=== PATIENT | female | born 1980 | race Caucasian/White ===

== ENCOUNTER 2022-10-19 16:37 | Inpatient (IN) | payer BC, MEDICAID, SELFPAY ==
[2022-10-19] MEDS ORDERED: Promethazine HCl 25 MG/ML VIAL IM PRN (20:31)
[2022-10-19] MEDS ORDERED: Ipratropium/Albuterol 3 ML NEB NEB PRN (20:31)
[2022-10-19] MEDS ORDERED: Dextrose 50% Abboject 50 ML SYRINGE SLOW IVP PRN (20:31)
[2022-10-19] MEDS ORDERED: Dextrose 5% in Water 1,000 ML IV PRN (20:31)
[2022-10-19] MEDS ORDERED: Acetaminophen 325 MG TAB PO PRN (20:31)
[2022-10-19] MEDS ORDERED: hydrALAZINE 20 MG/ML VIAL SLOW IVP PRN (20:31)
[2022-10-19] MEDS ORDERED: Ondansetron PF 4 MG/2 ML Vial IVP PRN (20:31)
[2022-10-19] MEDS ORDERED: Sodium Chloride 0.9% 500 ML IV SCH (21:30)
[2022-10-19] MEDS ORDERED: Piperacillin/Tazobactam 4.5 GM in Sodium Chloride 0.9% 100 ML IVPB SCH ×2 (22:00→22:15)
[2022-10-19] MEDS: Morphine 2 MG/ML VIAL SLOW IVP PRN (22:26)
[2022-10-19] MEDS: Famotidine/PF 20 mg/2ml Vial SLOW IVP SCH (22:26)
[2022-10-19] MEDS: Sodium Chloride 0.9% 1,000 ML IV SCH (22:36)
[2022-10-20] MEDS ORDERED: Piperacillin/Tazobactam 4.5 GM in Sodium Chloride 0.9% 100 ML IVPB SCH ×2 (00:15→02:00)
[2022-10-20] MEDS: Levothyroxine Sodium 100 MCG TAB PO SCH (05:13)
[2022-10-20] MEDS: Piperacillin/Tazobactam 4.5 GM in Sodium Chloride 0.9% 100 ML IVPB SCH ×4 (05:14→22:59)
[2022-10-20 06:12] LABS: #Eosinphils 0.3 thou/uL (0.0-0.7); #Lymphocytes 1.4 thou/uL (1.20-3.40); #Monocytes 1.2 thou/uL (0.11-0.59); #Neutrophils 11.5 thou/uL (1.40-6.50); %Basophils 0.1 % (0.0-1.0); %Lymphocytes 9.9 % (21.0-51.0); %Monocytes 8.4 % (0.0-10.0); %Neutrophils 79.6 % (42.0-75.0); Hemoglobin 10.2 g/dL (12.0-16.0); Mean Corpuscular HGB CONC 32.6 g/dL (32.0-36.0); Mean Corpuscular Hemoglobin 29.1 pg (27.0-31.0); Mean Corpuscular Volume 89.5 fl (78.0-98.0); Mean Platelet Volume 8.1 fL (7.4-10.4); Platelet Count 256 10x3/uL (130-400); RBC Distribution Width 16.3 % (11.5-14.5); Red Blood Cell (RBC) Count 3.52 mill/uL (4.20-5.40); White Blood Cell (WBC) Count 14.5 10x3/uL (4.8-10.8)
[2022-10-20 06:32] LABS: Anion Gap 13 mmol/L (10-20); BUN (Urea Nitrogen) 7 mg/dL (7.0-18.7); Calc. Creatinine Clearance 357 mL/min (70-130); Calcium 8.5 mg/dL (7.8-10.44); Carbon Dioxide 23 mmol/L (22-29); Chloride 103 mmol/L (98-107); Estimated GFR 92; Glucose 130 mg/dL (70-105); Magnesium 1.8 mg/dL (1.6-2.6); Potassium 3.6 mmol/L (3.5-5.1); Sodium 135 mmol/L (136-145)
[2022-10-20 06:37] LABS: ALT (SGPT) 41 U/L (8-55); AST (SGOT) 33 U/L (5-34); Albumin 3.1 g/dL (3.5-5.0); Alkaline Phosphatase 113 U/L (40-110); Bilirubin, Direct 0.6 mg/dL (0.1-0.3); Bilirubin, Total 1.2 mg/dL (0.2-1.2); Phosphorus 2.5 mg/dL (2.3-4.7); Protein, Total 6.6 g/dL (6.0-8.3)
[2022-10-20] MEDS: Morphine 2 MG/ML VIAL SLOW IVP PRN ×3 (07:15→19:44)
[2022-10-20] MEDS ORDERED: FLU VACC QS2022-23(6MO UP)/PF 60 MCG/0.5 ML SYRINGE IM ONE (09:00)
[2022-10-20] MEDS: Famotidine/PF 20 mg/2ml Vial SLOW IVP SCH ×2 (09:14→20:17)
[2022-10-20] MEDS: Sodium Chloride 0.9% 1,000 ML IV SCH ×2 (09:19→16:17)
[2022-10-20 16:57] VITALS: BMI 62.9
[2022-10-21] MEDS: Sodium Chloride 0.9% 1,000 ML IV SCH ×2 (05:05→14:12)
[2022-10-21] MEDS: Piperacillin/Tazobactam 4.5 GM in Sodium Chloride 0.9% 100 ML IVPB SCH ×4 (05:10→20:44)
[2022-10-21] MEDS: Levothyroxine Sodium 100 MCG TAB PO SCH (05:11)
[2022-10-21 07:31] LABS: #Eosinphils 0.6 thou/uL (0.0-0.7); #Lymphocytes 1.2 thou/uL (1.20-3.40); #Monocytes 1.1 thou/uL (0.11-0.59); #Neutrophils 9.3 thou/uL (1.40-6.50); %Basophils 0.2 % (0.0-1.0); %Eosinophils 4.6 % (0.0-10.0); %Monocytes 8.7 % (0.0-10.0); %Neutrophils 76.5 % (42.0-75.0); Hemoglobin 10.5 g/dL (12.0-16.0); Mean Corpuscular HGB CONC 31.8 g/dL (32.0-36.0); Mean Corpuscular Hemoglobin 28.7 pg (27.0-31.0); Mean Corpuscular Volume 90.5 fl (78.0-98.0); Mean Platelet Volume 8.6 fL (7.4-10.4); Platelet Count 256 10x3/uL (130-400); RBC Distribution Width 16.3 % (11.5-14.5); Red Blood Cell (RBC) Count 3.65 mill/uL (4.20-5.40); White Blood Cell (WBC) Count 12.1 10x3/uL (4.8-10.8)
[2022-10-21 08:13] LABS: ALT (SGPT) 48 U/L (8-55); AST (SGOT) 44 U/L (5-34); Albumin 3.3 g/dL (3.5-5.0); Alkaline Phosphatase 157 U/L (40-110); Anion Gap 14 mmol/L (10-20); BUN (Urea Nitrogen) 6 mg/dL (7.0-18.7); Bilirubin, Total 0.8 mg/dL (0.2-1.2); Calc. Creatinine Clearance 312 mL/min (70-130); Calcium 8.5 mg/dL (7.8-10.44); Carbon Dioxide 21 mmol/L (22-29); Chloride 103 mmol/L (98-107); Estimated GFR 97; Globulin 3.6 g/dL (2.4-3.5); Glucose 126 mg/dL (70-105); Phosphorus 3.1 mg/dL (2.3-4.7); Potassium 3.6 mmol/L (3.5-5.1); Protein, Total 6.9 g/dL (6.0-8.3); Sodium 134 mmol/L (136-145)
[2022-10-21] MEDS: Famotidine/PF 20 mg/2ml Vial SLOW IVP SCH ×2 (09:57→20:44)
[2022-10-21] MEDS: Morphine 2 MG/ML VIAL SLOW IVP PRN (14:18)
[2022-10-22] MEDS: Piperacillin/Tazobactam 4.5 GM in Sodium Chloride 0.9% 100 ML IVPB SCH ×4 (02:55→20:57)
[2022-10-22] MEDS: Levothyroxine Sodium 100 MCG TAB PO SCH (06:07)
[2022-10-22 06:16] LABS: #Eosinphils 0.5 thou/uL (0.0-0.7); #Lymphocytes 1.2 thou/uL (1.20-3.40); #Neutrophils 7.4 thou/uL (1.40-6.50); %Basophils 0.2 % (0.0-1.0); %Monocytes 9.5 % (0.0-10.0); %Neutrophils 73.4 % (42.0-75.0); Hemoglobin 9.9 g/dL (12.0-16.0); Mean Corpuscular HGB CONC 31.8 g/dL (32.0-36.0); Mean Corpuscular Hemoglobin 28.5 pg (27.0-31.0); Mean Corpuscular Volume 89.6 fl (78.0-98.0); Platelet Count 293 10x3/uL (130-400); RBC Distribution Width 15.9 % (11.5-14.5); Red Blood Cell (RBC) Count 3.46 mill/uL (4.20-5.40)
[2022-10-22 06:36] LABS: ALT (SGPT) 54 U/L (8-55); AST (SGOT) 46 U/L (5-34); Albumin 3.3 g/dL (3.5-5.0); Alkaline Phosphatase 165 U/L (40-110); Anion Gap 13 mmol/L (10-20); BUN (Urea Nitrogen) 4 mg/dL (7.0-18.7); Bilirubin, Total 0.7 mg/dL (0.2-1.2); Calc. Creatinine Clearance 312 mL/min (70-130); Calcium 8.6 mg/dL (7.8-10.44); Carbon Dioxide 24 mmol/L (22-29); Chloride 104 mmol/L (98-107); Estimated GFR 97; Globulin 3.7 g/dL (2.4-3.5); Glucose 132 mg/dL (70-105); Potassium 3.4 mmol/L (3.5-5.1); Sodium 138 mmol/L (136-145)
[2022-10-22] MEDS: Sodium Chloride 0.9% 1,000 ML IV SCH ×3 (08:00→16:50)
[2022-10-22] MEDS: Famotidine/PF 20 mg/2ml Vial SLOW IVP SCH ×2 (08:40→20:57)
[2022-10-22] MEDS ORDERED: Bupivacaine/Epinephrine 0.25% 30 ML VIAL ONE (09:59)
[2022-10-22] MEDS ORDERED: Scopolamine 1.5 mg/72 hour Patch ONE (09:59)
[2022-10-22] MEDS ORDERED: Midazolam HCl 2 mg/2 ml Vial ONE (09:59)
[2022-10-22] MEDS ORDERED: fentaNYL PF 100 MCG/2 ML SYRINGE ONE ×2 (10:07→13:14)
[2022-10-22] MEDS ORDERED: SUGAMMADEX SODIUM 200 MG/2 ML VIAL ONE (10:09)
[2022-10-22] MEDS ORDERED: Succinylcholine Chloride 100 MG/5 ML SYRINGE FS ONE (10:24)
[2022-10-22] MEDS ORDERED: Dexamethasone 20 MG/5 ML VIAL ONE (10:24)
[2022-10-22] MEDS ORDERED: PROPOFOL 200 MG/20 ML VIAL ONE (10:24)
[2022-10-22] MEDS ORDERED: Ondansetron PF 4 MG/2 ML Vial ONE ×2 (10:24→13:19)
[2022-10-22] MEDS ORDERED: Rocuronium Bromide 10 MG/ML (10ML VIAL) ONE (10:24)
[2022-10-22] MEDS ORDERED: Lidocaine 1% PF 5 ML VIAL ONE (10:24)
[2022-10-22] MEDS ORDERED: Albuterol HFA (OR) 200 PUFF INH ONE (10:28)
[2022-10-22] MEDS ORDERED: Morphine 4 MG/ML VIAL SLOW IVP PRN (12:57)
[2022-10-22] MEDS ORDERED: Ipratropium/Albuterol 3 ML NEB NEB PRN (12:57)
[2022-10-22] MEDS ORDERED: Promethazine HCl 25 MG/ML VIAL IM PRN ×6 (12:57→13:41)
[2022-10-22] MEDS ORDERED: hydrALAZINE 20 MG/ML VIAL SLOW IVP PRN (12:57)
[2022-10-22] MEDS ORDERED: Morphine 2 MG/ML VIAL SLOW IVP PRN (12:57)
[2022-10-22] MEDS ORDERED: Dextrose 50% Abboject 50 ML SYRINGE SLOW IVP PRN (12:57)
[2022-10-22] MEDS ORDERED: Ondansetron PF 4 MG/2 ML Vial IVP PRN ×4 (12:57→13:41)
[2022-10-22] MEDS ORDERED: Mag-Al 1200 mg/1200 mg/30 ML UDCUP PO PRN (12:57)
[2022-10-22] MEDS ORDERED: Calcium Carbonate 500 MG ChewTAB PO PRN (12:57)
[2022-10-22] MEDS ORDERED: Dextrose 5% in Water 1,000 ML IV PRN (12:57)
[2022-10-22] MEDS ORDERED: Piperacillin/Tazobactam 3.375 GM in Sodium Chloride 0.9% 100 ML IVPB SCH (13:00)
[2022-10-22] MEDS ORDERED: diphenhydrAMINE 50 MG/ML VIAL IVP PRN ×3 (13:04→13:41)
[2022-10-22] MEDS ORDERED: Naloxone HCl 0.4 mg/ml Vial IV PRN ×3 (13:04→13:41)
[2022-10-22] MEDS ORDERED: Zolpidem Tartrate 5 MG TAB PO PRN ×3 (13:04→13:41)
[2022-10-22] MEDS ORDERED: diphenhydrAMINE 50 MG/ML VIAL IM PRN ×3 (13:04→13:41)
[2022-10-22] MEDS ORDERED: diphenhydrAMINE 25 MG CAP PO PRN ×3 (13:04→13:41)
[2022-10-22] MEDS ORDERED: FENTANYL 500 MCG/10 ML VIAL 2,000 MCG in Sodium Chloride 0.9% 60 ML IV PRN ×3 (13:04→13:41)
[2022-10-22] MEDS ORDERED: Ondansetron HCl/PF 4 MG/2 ML Vial IVP PRN ×2 (13:06→13:40)
[2022-10-22] MEDS ORDERED: Communication Order-Pharmacy FS SCH ×3 (13:15→13:45)
[2022-10-22] MEDS ORDERED: Promethazine HCl 25 MG/ML VIAL ONE (13:32)
[2022-10-22] MEDS ORDERED: Ketorolac Tromethamine 30 MG/ML VIAL IVP PRN (13:40)
[2022-10-22] MEDS ORDERED: Fentanyl 100 MCG/2 ML VIAL ONE ×2 (13:40→14:33)
[2022-10-22] MEDS ORDERED: Labetalol HCl 100 MG/20 ML VIAL ONE (14:41)
[2022-10-22] MEDS: Lactated Ringer's 1,000 ML IV SCH ×2 (14:44→16:44)
[2022-10-22] MEDS: Ketorolac Tromethamine 30 MG/ML VIAL IVP SCH (16:44)
[2022-10-22] MEDS: Famotidine 20 MG TAB PO SCH (20:58)
[2022-10-23] MEDS: Piperacillin/Tazobactam 4.5 GM in Sodium Chloride 0.9% 100 ML IVPB SCH ×4 (01:43→21:06)
[2022-10-23] MEDS: Ketorolac Tromethamine 30 MG/ML VIAL IVP SCH ×4 (01:44→17:00)
[2022-10-23 06:24] LABS: #Eosinphils 0.1 thou/uL (0.0-0.7); #Lymphocytes 1.2 thou/uL (1.20-3.40); #Monocytes 1.3 thou/uL (0.11-0.59); #Neutrophils 9.6 thou/uL (1.40-6.50); %Basophils 0.2 % (0.0-1.0); %Eosinophils 0.6 % (0.0-10.0); %Lymphocytes 9.6 % (21.0-51.0); %Monocytes 10.5 % (0.0-10.0); %Neutrophils 79.2 % (42.0-75.0); Hemoglobin 9.4 g/dL (12.0-16.0); Mean Corpuscular Hemoglobin 28.8 pg (27.0-31.0); Platelet Count 335 10x3/uL (130-400); RBC Distribution Width 15.7 % (11.5-14.5); Red Blood Cell (RBC) Count 3.26 mill/uL (4.20-5.40); White Blood Cell (WBC) Count 12.2 10x3/uL (4.8-10.8)
[2022-10-23] MEDS: Levothyroxine Sodium 100 MCG TAB PO SCH (06:28)
[2022-10-23] MEDS: Lactated Ringer's 1,000 ML IV SCH ×3 (06:28→22:15)
[2022-10-23 06:45] LABS: ALT (SGPT) 74 U/L (8-55); AST (SGOT) 71 U/L (5-34); Alkaline Phosphatase 150 U/L (40-110); Anion Gap 15 mmol/L (10-20); BUN (Urea Nitrogen) 5 mg/dL (7.0-18.7); Bilirubin, Total 0.4 mg/dL (0.2-1.2); Calc. Creatinine Clearance 338 mL/min (70-130); Calcium 8.6 mg/dL (7.8-10.44); Carbon Dioxide 24 mmol/L (22-29); Chloride 103 mmol/L (98-107); Estimated GFR 107; Globulin 3.7 g/dL (2.4-3.5); Glucose 130 mg/dL (70-105); Lipase 20 U/L (8-78); Potassium 3.9 mmol/L (3.5-5.1); Protein, Total 6.7 g/dL (6.0-8.3); Sodium 138 mmol/L (136-145)
[2022-10-23] MEDS: Sodium Chloride 0.9% 1,000 ML IV SCH (07:25)
[2022-10-23] MEDS: Famotidine 20 MG TAB PO SCH ×2 (08:57→21:07)
[2022-10-23] MEDS: Famotidine/PF 20 mg/2ml Vial SLOW IVP SCH ×2 (08:58→21:08)
[2022-10-24] MEDS: Ketorolac Tromethamine 30 MG/ML VIAL IVP SCH ×4 (01:10→17:46)
[2022-10-24] MEDS: Piperacillin/Tazobactam 4.5 GM in Sodium Chloride 0.9% 100 ML IVPB SCH ×4 (01:11→20:52)
[2022-10-24] MEDS: Levothyroxine Sodium 100 MCG TAB PO SCH (05:58)
[2022-10-24] MEDS: Lactated Ringer's 1,000 ML IV SCH ×2 (06:15→14:13)
[2022-10-24] MEDS: Famotidine 20 MG TAB PO SCH ×2 (07:57→20:54)
[2022-10-24] MEDS: Famotidine/PF 20 mg/2ml Vial SLOW IVP SCH ×2 (08:04→20:54)
[2022-10-24] MEDS ORDERED: HYDROcodone/Acetaminophen 7.5/325 mg Tablet PO PRN ×2 (10:24)
[2022-10-25] MEDS: Piperacillin/Tazobactam 4.5 GM in Sodium Chloride 0.9% 100 ML IVPB SCH ×2 (02:03→09:02)
[2022-10-25] MEDS: Levothyroxine Sodium 100 MCG TAB PO SCH (06:04)
[2022-10-25] MEDS: Ketorolac Tromethamine 30 MG/ML VIAL IVP SCH ×2 (06:04)
[2022-10-25] MEDS: Lactated Ringer's 1,000 ML IV SCH ×2 (07:35→07:40)
[2022-10-25 08:07] VITALS: BP 168/101; TEMP 97.6
[2022-10-25] MEDS: Famotidine 20 MG TAB PO SCH (09:03)
[2022-10-25] MEDS: Famotidine/PF 20 mg/2ml Vial SLOW IVP SCH (09:03)
== END 2022-10-25 11:20 | disposition home or self-care (01) | DRG 414 ==
LOC: SURG A 16:37
PROVIDERS: ADMIT Surgery; ATTEND Surgery
PROC: 0FT40ZZ Resection of Gallbladder, Open Approach (ICD-10-PCS; principal; 2022-10-22)
PROC: 0FJ44ZZ Inspection of Gallbladder, Percutaneous Endoscopic Approach (ICD-10-PCS; 2022-10-22)
PROC: 0DQL0ZZ Repair Transverse Colon, Open Approach (ICD-10-PCS; 2022-10-22)
DX: K80.00 Calculus of gallbladder with acute cholecystitis without obstruction (principal); K65.9 Peritonitis, unspecified; K91.71 Accidental puncture and laceration of a digestive system organ or structure during a digestive system procedure; Z68.44 Body mass index [BMI] 60.0-69.9, adult; E66.01 Morbid (severe) obesity due to excess calories; Z20.822 Contact with and (suspected) exposure to COVID-19; Y83.8 Other surgical procedures as the cause of abnormal reaction of the patient, or of later complication, without mention of misadventure at the time of the procedure; E89.0 Postprocedural hypothyroidism; Z79.890 Hormone replacement therapy; Z56.0 Unemployment, unspecified; F17.210 Nicotine dependence, cigarettes, uncomplicated; K82.A1 Gangrene of gallbladder in cholecystitis
CPT/HCPCS: 36415; 76705; 76856; 80048; 80053; 80076; 83690; 83735; 84100; 85025; 87070; 87205; 88304; 90471; 90686; 93976; C1889; G0008; J0360; J1100; J1650; J1885; J2250; J2272; J2405; J2543; J2550; J2704; J3010; J3490; J7030; J7050; J7120; S0028